=== PATIENT | female | born 1950 | race Caucasian/White ===

== ENCOUNTER 2016-06-17 10:45 | Outpatient (CLI) | payer MEDICARE, BC | END 2016-06-17 10:46 | disposition home or self-care (01) | DX: M19.072 Primary osteoarthritis, left ankle and foot (principal); M20.12 Hallux valgus (acquired), left foot ==

== ENCOUNTER 2016-08-13 12:10 | Outpatient (CLI) | payer MEDICARE, BC | END 2016-08-13 12:11 | disposition home or self-care (01) | LOC: LAB.R 12:10 | PROVIDERS: ATTEND Family Medicine | DX: N39.0 Urinary tract infection, site not specified (principal) | CPT/HCPCS: 87086 ==

== ENCOUNTER 2016-12-11 07:21 | Outpatient (CLI) | payer MEDICARE, BC ==
[2016-12-11 11:41] LABS: BASOPHILS # (AUTO) 0.1 10^3/uL (0.0-0.1); BASOPHILS % (AUTO) 0.8 %; EOSINOPHILS # (AUTO) 0.2 10^3/uL (0.0-0.7); EOSINOPHILS % (AUTO) 2.8 %; HCT - HEMATOCRIT 40.9 % (37.0-47.0); LYMPHOCYTES # (AUTO) 1.7 10^3/uL (1.5-3.5); LYMPHOCYTES % (AUTO) 26.4 %; MEAN CORPUSCULAR HEMOGLOBIN 30.4 pg (27.0-31.0); MEAN CORPUSCULAR HGB CONC 34.2 g/dL (32.0-36.0); MEAN CORPUSCULAR VOLUME 88.7 fL (81.0-99.0); MEAN PLATELET VOLUME 9.1 fL (7.9-10.8); MONOCYTES # (AUTO) 0.8 10^3/uL (0.0-1.0); MONOCYTES % (AUTO) 11.9 %; NEUTROPHILS # (AUTO) 3.7 10^3/uL (1.5-6.6); NEUTROPHILS % (AUTO) 58.1 %; RED BLOOD COUNT 4.61 10^6/uL (4.20-5.40); UNCORRECTED WHITE BLOOD COUNT 6.4 x10^3/uL; WHITE BLOOD COUNT 6.4 x10^3/uL (4.8-10.8)
[2016-12-11 11:56] LABS: ALBUMIN/GLOBULIN RATIO 1.4 (1.0-2.2); BILIRUBIN,TOTAL 0.7 mg/dL (0.2-1.0); BUN - BLOOD UREA NITROGEN 16 mg/dL (6-20); CALCIUM 9.2 mg/dL (8.5-10.3); CARBON DIOXIDE - CO2 25 mmol/L (21-32); CHLORIDE 104 mmol/L (101-111); CHOL/HDL RATIO 4.6 (<4.4); CHOLESTEROL 230 mg/dL; CREATININE 0.9 mg/dL (0.4-1.0); GFR - MDRD 62 (>89); GLUCOSE 108 mg/dL (70-100); HDL CHOLESTEROL 50 mg/dL; LDL/HDL RATIO 2.9 (<4.4); SODIUM 137 mmol/L (135-145); TRIGLYCERIDES 185 mg/dL; VLDL CHOLESTEROL 37 mg/dL
== END 2016-12-11 07:22 | disposition home or self-care (01) ==
LOC: LAB.F 07:21
PROVIDERS: ATTEND Family Medicine
DX: E78.5 Hyperlipidemia, unspecified (principal)
CPT/HCPCS: 36415; 80053; 80061; 85025

== ENCOUNTER 2017-06-14 07:41 | Outpatient (CLI) | payer MEDICARE, BC ==
[2017-06-14 10:54] LABS: ALBUMIN 4.2 g/dL (3.2-5.5); ALBUMIN/GLOBULIN RATIO 1.5 (1.0-2.2); BILIRUBIN,TOTAL 0.8 mg/dL (0.2-1.0); CREATININE 0.9 mg/dL (0.4-1.0)
== END 2017-06-14 07:42 | disposition home or self-care (01) ==
LOC: LAB 07:41 → LAB.F 07:42
PROVIDERS: ATTEND Family Medicine
DX: R73.01 Impaired fasting glucose (principal); E78.5 Hyperlipidemia, unspecified
CPT/HCPCS: 36415; 80053; 82465

== ENCOUNTER 2017-07-05 14:48 | Outpatient (CLI) | payer MEDICARE, BC ==
--- NOTE | 2017-07-06 12:46 | DEXA Report ---
DEXA SCAN: 07/05/2017 CLINICAL INDICATION: Postmenopausal. TECHNIQUE: Dual energy x-ray absorptiometry (DXA) was performed on a [employer] PF system. Regions measured are the AP spine, femoral neck, and, if needed, forearm. COMPARISON: None. In accordance with the International Society for Clinical Densitometry (ISCD) guidelines, data from previous exams may be reanalyzed using current recommendations and techniques. This is done to allow a more accurate basis for comparison with the current study. FINDINGS Data for the lumbar spine is as follows: REGION BMD (g/cm/cm) T-SCORE Z-SCORE L1 1.020 -0.9 0.0 L2 1.104 -0.8 0.1 L3 1.207 0.1 1.0 L4 1.216 0.1 1.1 L1-L4 1.140 -0.3 0.6 NOTE: All evaluable vertebrae are used for classification. Data for the hip is as follows: REGION BMD (g/cm/cm) T-SCORE Z-SCORE Neck 0.915 -0.9 0.3 TOTAL 0.959 -0.4 0.5 NOTE: The femoral neck or total proximal femur, whichever is lowest, is used for classification. IMPRESSION WHO CLASSIFICATION BASED ON THE INTERNATIONAL REFERENCE STANDARD IS NORMAL. FRACTURE RISK IS NOT INCREASED. RECOMMENDATION: Patients with diagnosis of osteoporosis or osteopenia should have regular bone mineral density assessment. For those eligible for Medicare, routine testing is allowed once every 2 years. Testing frequency can be increased for patients who have rapidly progressing disease or for those who are receiving medical therapy to restore bone mass. COMMENT World Health Organization (WHO) definitions for osteoporosis and osteopenia: NORMAL BMD: T-score at 1.0 or higher, fracture risk is low. OSTEOPENIA BMD: T-score between 1.0 and -2.5, fracture risk is increased. OSTEOPOROSIS BMD: T-score at 2.5 or lower, fracture risk high. National Osteoporosis Foundation recommends: 1. Obtain adequate dietary calcium (at least 1200 mg per day) and vitamin D (400 -800 international units per day). 2. Participate, as appropriate, in regular weightbearing and muscle- strengthening exercise. 3. Avoid tobacco use and reduce alcohol and caffeine intake. 4. For more detailed information see the website at www.NOF.org. TD: 07/05/2017 16:21 JENNIFER
== END 2017-07-05 14:49 | disposition home or self-care (01) ==
LOC: DI 14:48
PROVIDERS: ATTEND Family Medicine
DX: Z78.0 Asymptomatic menopausal state (principal)
CPT/HCPCS: 77080

== ENCOUNTER 2017-07-05 14:48 | Outpatient (CLI) | payer MEDICARE, BC ==
--- NOTE | 2017-07-06 14:54 | Mammography Report ---
DIGITAL SCREENING MAMMOGRAM: 07/05/2017 CLINICAL INDICATION: A 67-year-old nulliparous patient with history of bilateral benign biopsies for screening. COMPARISON: 08/2014, 10/2012, 01/2011, 12/2009. TECHNIQUE: Routine CC and MLO projections were obtained of the breasts. FINDINGS: The breasts again demonstrate scattered fibroglandular densities bilaterally. Post-biopsy changes are stable. Coarse and punctate, typically benign calcifications are present. No suspicious masses, clustered microcalcifications, or regions of architectural distortion are identified. IMPRESSION: BENIGN FINDINGS. RECOMMENDATION: Routine annual screening unless otherwise clinically indicated. BIRADS CATEGORY 2 - BENIGN FINDINGS. STANDARD QUALIFYING STATEMENTS: 1. This examination was reviewed with the aid of Computer-Aided Detection (CAD). 2. A negative or benign imaging report should not delay biopsy if clinically suspicious findings are present. Consider surgical consultation if warranted. More than 5% of cancers are not identified by imaging. 3. Dense breasts may obscure an underlying neoplasm. TD: 07/06/2017 14:54
== END 2017-07-05 14:49 | disposition home or self-care (01) ==
LOC: DI 14:48
PROVIDERS: ATTEND Family Medicine
DX: Z12.31 Encounter for screening mammogram for malignant neoplasm of breast (principal)
CPT/HCPCS: 77067

== ENCOUNTER 2018-01-03 08:22 | Outpatient (CLI) | payer MEDICARE, BC ==
[2018-01-03 10:54] LABS: ALBUMIN 4.1 g/dL (3.2-5.5); ALBUMIN/GLOBULIN RATIO 1.4 (1.0-2.2); ALKALINE PHOSPHATASE 76 IU/L (42-121); ALT ALANINE AMINOTRANSFERASE 25 IU/L (10-60); AST ASPARTATE AMINOTRANSFERASE 22 IU/L (10-42); BILIRUBIN,TOTAL 0.7 mg/dL (0.2-1.0); BUN - BLOOD UREA NITROGEN 16 mg/dL (6-20); CALCIUM 9.2 mg/dL (8.5-10.3); CARBON DIOXIDE - CO2 27 mmol/L (21-32); CHLORIDE 105 mmol/L (101-111); CHOL/HDL RATIO 4.3 (<4.4); CHOLESTEROL 213 mg/dL; CREATININE 0.8 mg/dL (0.4-1.0); GFR - MDRD 71 (>89); GLUCOSE 99 mg/dL (70-100); HDL CHOLESTEROL 50 mg/dL; LDL CHOLESTEROL,CALCULATED 129 mg/dL; LDL/HDL RATIO 2.6 (<4.4); SODIUM 139 mmol/L (135-145); TOTAL PROTEIN 7.1 g/dL (6.7-8.2); VLDL CHOLESTEROL 34 mg/dL
== END 2018-01-03 08:23 | disposition home or self-care (01) ==
LOC: LAB.F 08:22
PROVIDERS: ATTEND Family Medicine
DX: E78.5 Hyperlipidemia, unspecified (principal)
CPT/HCPCS: 36415; 80053; 80061; 83721

== ENCOUNTER 2018-05-12 15:56 | Outpatient (CLI) | payer MEDICARE, BC ==
[2018-05-12 16:22] LABS: CREATININE 0.8 mg/dL (0.4-1.0)
== END 2018-05-12 15:57 | disposition home or self-care (01) ==
LOC: LAB 15:56
PROVIDERS: ATTEND Orthopaedic Surgery
DX: M18.10 Unilateral primary osteoarthritis of first carpometacarpal joint, unspecified hand (principal)
CPT/HCPCS: 36415; 82565; 84520

== ENCOUNTER 2018-05-30 10:30 | Outpatient (CLI) | payer MEDICARE, BC ==
[~2018-05-30 10:30] MED LIST: GADOPENTETATE DIMEGLUMINE 5 ML VIAL IVP ONE; IOTHALAMATE MEGLUMINE 50 ML VIAL ONE
[2018-05-30] MEDS ORDERED: BUFFERED LIDOCAINE 10 ML SYRINGE ONE (10:45)
--- NOTE | 2018-05-30 12:11 | XRAY Report ---
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 CLINICAL HISTORY: Possible internal derangement of the radiocarpal joint. COMPARISON: None. TECHNIQUE: The risks, benefits, and alternatives of the procedure were discussed with the patient. All questions were answered. Written and verbal consent were obtained. The radiocarpal joint was marked under fluoroscopy and prepped and draped in a sterile manner. Local anesthesia was performed with 1% lidocaine. A 25-gauge needle was then inserted into the radiocarpal joint. 3 mL of a solution containing 25% 1% lidocaine, 25% iodinated contrast, and a 1:200 dilution of gadolinium contrast in sterile saline was then injected. The needle was removed without immediate complication. Other: None. Fluoroscopy Time: 2 seconds. Number of Images: 5. FINDINGS: Bones and joints: No fracture or subluxation. Injection: Fluoroscopic images demonstrate needle placement and contrast in the radiocarpal joint. No contrast extravasation outside of the radiocarpal joint. IMPRESSION: Successful fluoroscopically guided arthrographic injection of the wrist. RAD[facility]
[2018-05-30] MEDS ORDERED: BUFFERED LIDOCAINE 10 ML SYRINGE IU ONE (13:05)
[2018-05-30] MEDS ORDERED: GADOPENTETATE DIMEGLUMINE 5 ML VIAL IVP ONE (13:05)
[2018-05-30] MEDS ORDERED: IOTHALAMATE MEGLUMINE 50 ML VIAL IVP ONE (13:05)
--- NOTE | 2018-05-31 07:44 | MRI Report ---
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 CLINICAL HISTORY: Left wrist pain. First carpometacarpal joint osteoarthritis. COMPARISON: Left wrist arthrogram injection fluoroscopic images from 05/30/2018. TECHNIQUE: Multiplanar, multisequence T1-weighted and fluid-sensitive sequences of the wrist after an arthrographic injection of dilute gadolinium, dictated under a separate exam. Other: None. FINDINGS: Bones: No fractures or subluxations. No marrow edema. No bone lesions. Cartilage: Mild to moderate first carpometacarpal joint osteoarthritis. There is an approximately 2 x 3 mm full-thickness tear at the central to radial aspect of the triangular fibrocartilage articular disk. Ligaments: The scapholunate and lunotriquetral ligaments are intact. The visualized other intrinsic, extrinsic and collateral ligaments are unremarkable. Tendons: The extensor compartments I through and flexor tendons are unremarkable. Musculature: No edema or fatty atrophy. Other: The contents of the carpal tunnel, including the median nerve, are unremarkable. Guyons canal is unremarkable. No ganglion cysts. The subcutaneous tissues are unremarkable. IMPRESSION: 1. Full-thickness tear at the triangular fibrocartilage articular disk. 2. Mild to moderate first carpometacarpal joint osteoarthritis. 3. No evidence of tendon or ligament injury. [facility] MUSCULOSKELETAL RADIOLOGY SECTION
== END 2018-05-30 10:31 | disposition home or self-care (01) ==
LOC: DI 10:30
PROVIDERS: ATTEND Orthopaedic Surgery
DX: M18.12 Unilateral primary osteoarthritis of first carpometacarpal joint, left hand (principal); S63.592A Other specified sprain of left wrist, initial encounter
CPT/HCPCS: 25246; 73222; 77002; Q9961

== ENCOUNTER 2018-07-04 09:57 | Outpatient (CLI) | payer MEDICARE, BC ==
--- NOTE | 2018-07-04 19:48 | MRI Report ---
Reason: LUMBAR SPINE PAIN Procedure Date: 07/04/2018 Accession Number: [id number] / [id number] Procedure: MRI - Lumbar Spine W/O CPT Code: FULL RESULT: EXAM: MRI LUMBAR SPINE WITHOUT CONTRAST EXAM DATE: 07/04/2018 10:36 AM. CLINICAL HISTORY: LUMBAR SPINE PAIN. COMPARISON: MRI lumbar spine 11/27/2006. TECHNIQUE: Multiplanar, multisequence T1-weighted and fluid-sensitive sequences of the lumbar spine from T12 to S1 without contrast. Other: None. FINDINGS: Loss of vertebral body height along the superior endplate of T12 is stable. Vertebral body height is maintained throughout the lumbar spine. There is degenerative Schmorl's node formation at scattered levels. There has been development of diskogenic endplate irregularity at L4-L5. Grade 1 retrolisthesis of L4 relative to L5 is new. No abnormal signal is seen in the conus medullaris. T11-T12: No central canal stenosis is seen on the sagittal views. T12-L1: Posterior bulge of the annulus is new. L1-L2: A mild broad-based posterior disk protrusion has developed. No stenosis. There is a far lateral component on the right. L2-L3: A mild broad-based posterior disk protrusion has developed. No stenosis. L3-L4: A mild broad-based posterior disk protrusion has developed. No stenosis. L4-L5: A mild broad-based posterior disk protrusion has developed. Superior lateral recess narrowing is seen bilaterally greater on the right relative to the left. The disk protrusion extends into the foramen on the right and results in mild to moderate right foraminal stenosis. L5-S1: A mild broad-based posterior disk protrusion has developed. There is a foraminal component on the right which results in mild right foraminal stenosis. IMPRESSION: 1. Development of posterior disk protrusions from L1 through S1, greatest at L4-L5. 2. Development of right foraminal stenosis at L4-L5 and L5-S1. 3. Interval development of grade 1 retrolisthesis at L4-L5 and degenerative endplate irregularity at this level. 4. Vertebral body height loss at T12 is again seen consistent with a chronic compression deformity. No new compression deformity has developed in the interim. Comment: The following findings are so common in adults without low back pain that while we report their presence, they must be interpreted with caution and in the context of the clinical situation. (Reference Maulik et al, Spine 2001) Prevalence of findings in patients without low back pain: Disk degeneration (any evidence): 92% Disk desiccation/T2 signal loss: 83% Disk height loss: 56% Disk bulge: 64% Disk protrusion: 32% Annular tear/high intensity zone: 38% RADIA
== END 2018-07-04 09:58 | disposition home or self-care (01) ==
LOC: DI 09:57
PROVIDERS: ATTEND Physical Medicine & Rehabilitation Pain Medicine
DX: M51.26 Other intervertebral disc displacement, lumbar region (principal); M51.27 Other intervertebral disc displacement, lumbosacral region; M43.16 Spondylolisthesis, lumbar region
CPT/HCPCS: 72148

== ENCOUNTER 2018-11-29 09:03 | Outpatient (CLI) | payer MEDICARE, BC ==
--- NOTE | 2018-11-29 15:30 | MRI Report ---
Reason: RIGHT SHOULDER PAIN Procedure Date: 11/29/2018 Accession Number: [id number] / [id number] Procedure: MRI - Shoulder RT W/O CPT Code: FULL RESULT: EXAM: RIGHT SHOULDER MRI WITHOUT CONTRAST EXAM DATE: 11/29/2018 09:50 AM. CLINICAL HISTORY: Right shoulder pain. Limited range of motion. No surgery. COMPARISON: Radiographs 06/15/2016. TECHNIQUE: Multiplanar, multisequence T1-weighted and fluid-sensitive sequences of the shoulder without contrast. Other: None. FINDINGS: Acromioclavicular Region: The acromion is type II with mild anterior downsloping. Mild degenerative change at the acromioclavicular joint with small inferiorly directed osteophytes. The coracoacromial and coracoclavicular ligaments are intact. Minimal subacromial/subdeltoid bursal fluid. Glenohumeral Region: No subluxation. Small joint effusion with synovitis. Deep partial-thickness cartilage loss throughout the joint centrally. Mild edema in the joint capsule of the axillary recess with distortion at the humeral insertion posterior inferior glenohumeral ligament. Bone Marrow: No fracture or bone lesion. Mild reactive cyst and edema at the greater tuberosity. Labrum: Degenerative fraying throughout, most prominent at the posterior superior aspect where there is undersurface and free edge irregularity. Musculature/Rotator Cuff: Mild supraspinatus tendinopathy. Small shallow partial-thickness intrasubstance tear central to posterior insertion. Focal deep intrasubstance tear posterior insertion. Mild infraspinatus tendinopathy. Subtle shallow intrasubstance tear posterior insertion. Teres minor tendon unremarkable. Mild subscapularis tendinopathy with focal deep partial-thickness intrasubstance tear superior insertion. No edema or fatty atrophy. Biceps Tendon: Mild tendinopathy interarticular portion with possible intrasubstance tearing. Other: The subcutaneous tissues are unremarkable. IMPRESSION: 1. Mild supraspinatus tendinopathy with shallow intrasubstance tear central to posterior fibers. Focal deep intrasubstance tear posterior insertion. 2. Mild infraspinatus tendinopathy with subtle shallow intrasubstance tear posterior insertion. 3. Mild subscapularis tendinopathy with focal deep intrasubstance tear superior insertion. 4. Mild biceps tendinopathy with possible intrasubstance tearing. 5. Degenerative fraying throughout the labrum, most prominent posterior superior aspect. 6. Partial-thickness tear posterior inferior glenohumeral ligament. 7. Minimal subacromial subdeltoid bursitis. 8. Mild acromioclavicular degenerative change. 9. Anterior downsloping of the acromion and acromioclavicular osteophytes may contribute to symptoms of impingement. RADIA
== END 2018-11-29 09:04 | disposition home or self-care (01) ==
LOC: DI 09:03
PROVIDERS: ATTEND Orthopaedic Surgery
DX: M75.111 Incomplete rotator cuff tear or rupture of right shoulder, not specified as traumatic (principal); M67.911 Unspecified disorder of synovium and tendon, right shoulder; S43.491A Other sprain of right shoulder joint, initial encounter; M75.51 Bursitis of right shoulder; M19.011 Primary osteoarthritis, right shoulder; M25.711 Osteophyte, right shoulder

== ENCOUNTER 2019-01-09 08:00 | Outpatient (CLI) | payer MEDICARE, BC ==
[2019-01-09 19:16] LABS: RHEUMATOID FACTOR NEGATIVE (Negative)
== END 2019-01-09 08:01 | disposition home or self-care (01) ==
LOC: LAB.WCP 08:00
PROVIDERS: ATTEND Nurse Practitioner Family
DX: M25.50 Pain in unspecified joint (principal)
CPT/HCPCS: 36415; 86430

== ENCOUNTER 2019-04-25 09:00 | Outpatient (CLI) | payer MEDICARE, BC ==
[2019-04-25 17:16] LABS: BASOPHILS % (AUTO) 0.8 %; EOSINOPHILS # (AUTO) 0.1 10^3/uL (0.0-0.7); EOSINOPHILS % (AUTO) 2.5 %; HGB - HEMOGLOBIN 13.7 g/dL (12.0-16.0); LYMPHOCYTES # (AUTO) 1.6 10^3/uL (1.5-3.5); LYMPHOCYTES % (AUTO) 31.4 %; MEAN CORPUSCULAR HGB CONC 32.7 g/dL (32.0-36.0); MEAN CORPUSCULAR VOLUME 91.7 fL (81.0-99.0); MEAN PLATELET VOLUME 11.4 fL (7.9-10.8); MONOCYTES # (AUTO) 0.6 10^3/uL (0.0-1.0); MONOCYTES % (AUTO) 11.2 %; NEUTROPHILS # (AUTO) 2.8 10^3/uL (1.5-6.6); NEUTROPHILS % (AUTO) 53.9 %; PLT - PLATELET COUNT 218 10^3/uL (130-450); RED BLOOD COUNT 4.57 10^6/uL (4.20-5.40); RED CELL DISTRIBUTION WIDTH 13.5 % (12.0-15.0); WHITE BLOOD COUNT 5.2 x10^3/uL (4.8-10.8)
[2019-04-25 17:53] LABS: ALBUMIN/GLOBULIN RATIO 1.4 (1.0-2.2); ALKALINE PHOSPHATASE 78 IU/L (42-121); ALT ALANINE AMINOTRANSFERASE 38 IU/L (10-60); AST ASPARTATE AMINOTRANSFERASE 27 IU/L (10-42); BILIRUBIN,TOTAL 0.7 mg/dL (0.2-1.0); BUN - BLOOD UREA NITROGEN 12 mg/dL (6-20); CALCIUM 9.3 mg/dL (8.5-10.3); CARBON DIOXIDE - CO2 26 mmol/L (21-32); CHLORIDE 107 mmol/L (101-111); CHOLESTEROL 209 mg/dL; CREATININE 0.8 mg/dL (0.4-1.0); GFR - MDRD 71 (>89); GLUCOSE 107 mg/dL (70-100); HDL CHOLESTEROL 52 mg/dL; LDL CHOLESTEROL,CALCULATED 126 mg/dL; LDL/HDL RATIO 2.4 (<4.4); SODIUM 139 mmol/L (135-145); TOTAL PROTEIN 6.9 g/dL (6.7-8.2); VLDL CHOLESTEROL 31 mg/dL
== END 2019-04-25 09:01 | disposition home or self-care (01) ==
LOC: LAB.S 09:00
PROVIDERS: ATTEND Family Medicine
DX: E78.5 Hyperlipidemia, unspecified (principal)
CPT/HCPCS: 36415; 80053; 80061; 83721; 84443; 85025

== ENCOUNTER → 2019-09-21 | Outpatient (CLI) | payer MEDICARE, BC ==
--- NOTE | 2019-09-21 10:17 | XRAY Report ---
Reason: COUGH, GERD Procedure Date: 09/21/2019 Accession Number: [id number] / [id number] Procedure: WCP - Chest 2 View X-Ray CPT Code: 10235 Final Report FULL RESULT: PROCEDURE: Chest 2 View X-Ray INDICATIONS: Cough, GERD TECHNIQUE: 2 view(s) of the chest. COMPARISON: None. FINDINGS: Surgical changes and devices: None. Lungs and pleura: No pleural effusions or pneumothorax. Lungs are clear. Mediastinum: Mediastinal contours are normal. Heart size is normal. Bones and chest wall: No suspicious bony abnormalities. Soft tissues appear unremarkable. IMPRESSION: Normal chest radiographs. Reviewed by: Luis Antonio Webster MD on 09/21/2019 10:15 AM PDT Approved by: Luis Antonio Webster MD on 09/21/2019 10:15 AM PDT Station ID: [id number]
== END ==
LOC: DI.WCP 09:51
PROVIDERS: ATTEND Family Medicine
DX: K21.9 Gastro-esophageal reflux disease without esophagitis (principal); R05 Cough
CPT/HCPCS: 71046

== ENCOUNTER 2019-12-01 13:34 | Outpatient (CLI) | payer MEDICARE, BC ==
--- NOTE | 2019-12-04 13:39 | Mammography Report ---
BILATERAL DIGITAL SCREENING MAMMOGRAM 3D/2D: 12/01/2019 CLINICAL: Routine screening. Comparison is made to exams dated: 07/05/2017 mammogram, 08/07/2014 mammogram, 10/21/2012 mammogram, 01/2011 mammogram, and 01/03/2010 mammogram - [facility]. There are scattered fibr oglandular elements in both breasts. No significant masses, calcifications, or other findings are seen in either breast. There has been no significant interval change. IMPRESSION: NEGATIVE There is no mammographic evidence of malignancy. A 1 year screening mammogram is recommended. This exam was interpreted at Station ID: [id number]. NOTE: For mammograms, a report in lay terms will be sent to the patient. Approximately 15% of breast malignancies will not be visualized mammographically. In the management of a palpable breast mass, a negative mammogram must not discourage biopsy of a clinically suspicious lesion. Electronically Signed By: Hector Ramirez M.D. slc/penrad:12/01/2019 17:00:15 ACR BI-RADS Category 1: Negative 3341F PARENCHYMAL PATTERN: (A) - The breast(s) demonstrate(s) scattered fibroglandular densities. BI-RADS CATEGORY: (1) - 1 RECOMMENDATION: (ANNUAL) - Recommend routine annual screening mammography. [id number] 1 year screening LATERALITY: (B)
== END 2019-12-01 13:35 | disposition home or self-care (01) ==
LOC: DI 13:34
PROVIDERS: ATTEND Family Medicine
DX: Z12.31 Encounter for screening mammogram for malignant neoplasm of breast (principal)
CPT/HCPCS: 77063; 77067

== ENCOUNTER 2020-04-15 08:43 | Outpatient (CLI) | payer MEDICARE, BC ==
[2020-04-15 15:32] LABS: BASOPHILS % (AUTO) 0.6 %; EOSINOPHILS # (AUTO) 0.1 10^3/uL (0.0-0.7); EOSINOPHILS % (AUTO) 2.2 %; HGB - HEMOGLOBIN 13.5 g/dL (12.0-16.0); LYMPHOCYTES # (AUTO) 1.7 10^3/uL (1.5-3.5); LYMPHOCYTES % (AUTO) 34.9 %; MEAN CORPUSCULAR HEMOGLOBIN 30.8 pg (27.0-31.0); MEAN CORPUSCULAR HGB CONC 33.4 g/dL (32.0-36.0); MEAN PLATELET VOLUME 11.5 fL (7.9-10.8); MONOCYTES # (AUTO) 0.6 10^3/uL (0.0-1.0); MONOCYTES % (AUTO) 12.6 %; NEUTROPHILS # (AUTO) 2.5 10^3/uL (1.5-6.6); NEUTROPHILS % (AUTO) 49.5 %; PLT - PLATELET COUNT 229 10^3/uL (130-450); RED BLOOD COUNT 4.39 10^6/uL (4.20-5.40); RED CELL DISTRIBUTION WIDTH 13.6 % (12.0-15.0)
[2020-04-15 16:34] LABS: ALBUMIN 4.2 g/dL (3.2-5.5); ALBUMIN/GLOBULIN RATIO 1.8 (1.0-2.2); ALKALINE PHOSPHATASE 71 IU/L (42-121); ALT ALANINE AMINOTRANSFERASE 22 IU/L (10-60); AST ASPARTATE AMINOTRANSFERASE 21 IU/L (10-42); BILIRUBIN,TOTAL 0.6 mg/dL (0.2-1.0); BUN - BLOOD UREA NITROGEN 18 mg/dL (6-20); CALCIUM 10.1 mg/dL (8.5-10.3); CARBON DIOXIDE - CO2 24 mmol/L (21-32); CHLORIDE 105 mmol/L (101-111); CHOL/HDL RATIO 3.2 (<4.4); CHOLESTEROL 173 mg/dL; CREATININE 0.7 mg/dL (0.4-1.0); GLUCOSE 102 mg/dL (70-100); HDL CHOLESTEROL 54 mg/dL; LDL CHOLESTEROL,CALCULATED 104 mg/dL; LDL/HDL RATIO 1.9 (<4.4); TOTAL PROTEIN 6.6 g/dL (6.7-8.2); VLDL CHOLESTEROL 15 mg/dL
== END 2020-04-15 08:44 | disposition home or self-care (01) ==
LOC: LAB.S 08:43
PROVIDERS: ATTEND Internal Medicine
DX: E78.5 Hyperlipidemia, unspecified (principal)
CPT/HCPCS: 36415; 80053; 80061; 83721; 85025

== ENCOUNTER 2020-07-30 08:00 | Outpatient (CLI) | payer MEDICARE, BC | END 2020-07-30 23:59 | disposition home or self-care (01) | LOC: LAB.S 08:00 | PROVIDERS: ATTEND Physician Assistant | DX: R30.0 Dysuria (principal) | CPT/HCPCS: 87086 ==

== ENCOUNTER 2020-08-16 07:24 | Emergency (ER) | payer MEDICARE, BC ==
--- NOTE | 2020-08-16 07:44 | ED Physician Documentation ---
PD HPI CHEST PAIN - Stated complaint Stated Complaint: CHEST PX - Chief complaint Chief Complaint: Cardiac - History obtained from History obtained from: Patient - Additional information Additional information: 70-year-old woman with history of postmenopausal symptoms on estrogen and bone and joint problems but otherwise very healthy noted dull aching left anterior chest pain at about 3 AM. She was awake at the time. It is not severe. It does not radiate except for a couple of short episodes of pain in the left shoulder. No radiation to the jaw or back. She tried walking around to see if that would help. It did not help but nor did it make the pain worse. It is not associated with nausea, shortness of breath, fatigue. She did have some sweats this morning but that is fairly routine for her with her postmenopausal symptoms. No history of DVT or PE. No calf or ankle pain or swelling. No recent travel. Review of Systems Ten Systems: 10 systems reviewed and negative Constitutional: reports: Sweats (chronic). 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 HEENT: Cataracts - Present Medications Home Medications: Ambulatory Orders Medication Instructions Recorded Confirmed Albuterol Sulfate 0.63 mg IH DAILY 04/10/14 08/16/20 Atorvastatin [Lipitor] 1 tab DAILY 08/16/20 08/16/20 Pantoprazole [Protonix] 1 tab DAILY 08/16/20 08/16/20 - Allergies Allergies/Adverse Reactions: Allergies Allergy/AdvReac Type Severity Reaction Status Date / Time No Known Drug Allergies Allergy Verified 08/16/20 07:37 - Social History Does the pt smoke?: No Smoking Status: Never smoker Does the pt drink ETOH?: Yes Does the pt have substance abuse?: No - POLST Patient has POLST: No PD ED PE NORMAL - Vitals Vital signs reviewed: Yes - General General: Alert and oriented X 3, No acute distress - HEENT HEENT: PERRL, EOMI - Neck Neck: Supple, no meningeal sign, No bony TTP - Cardiac Cardiac: RRR, No murmur - Respiratory Respiratory: No respiratory distress, Clear bilaterally - Abdomen Abdomen: Soft, Non tender - Back Back: No CVA TTP, No spinal TTP - Derm Derm: Normal color, Warm and dry - Extremities Extremities: No edema, No calf tenderness / cord - Neuro Neuro: Alert and oriented X 3, Normal speech Results - Vitals Vitals: Vital Signs - 24 hr 08/16/20 08/16/20 08/16/20 07:26 07:30 09:39 Temperature 36 C L Heart Rate 51 L 57 L Respiratory 16 18 Rate Blood Pressure 143/84 H 123/74 Blood Pressure 133/79 H [Left] O2 Saturation 98 98 08/16/20 10:00 Temperature Heart Rate 57 L Respiratory 11 L Rate Blood Pressure 121/71 Blood Pressure [Left] O2 Saturation 98 Oxygen O2 Source Room air - EKG (time done) 0727 Rate: Rate (enter#) (51) Rhythm: NSR Bradner: Normal Intervals: Normal ND Ischemia: Non specific changes. No: ST elevation c/w ischemia, ST depression - Labs Labs: Laboratory Tests 08/16/20 08/16/20 08/16/20 07:56 07:56 07:56 WBC 5.8 RBC 4.64 Hgb 13.5 Hct 41.3 MCV 89.0 MCH 29.1 MCHC 32.7 RDW 13.4 Plt Count 224 MPV 10.1 Neut # (Auto) 3.2 Lymph # (Auto) 1.7 [place] # (Auto) 0.6 Eos # (Auto) 0.3 Baso # (Auto) 0.0 Absolute Nucleated RBC 0.00 Nucleated RBC % 0.0 D-Dimer 209.7 Sodium 138 Potassium 4.1 Chloride 104 Carbon Dioxide 25 Anion Gap 9.0 BUN 18 Creatinine 0.8 Estimated GFR (MDRD) 71 L Glucose 108 H Calcium 9.8 Total Bilirubin 0.7 AST 23 ALT 23 Alkaline Phosphatase 90 Troponin I High Sens Total Protein 7.3 Albumin 4.2 Globulin 3.1 Albumin/Globulin Ratio 1.4 Lipase 36 08/16/20 08/16/20 07:56 10:00 WBC RBC Hgb Hct MCV MCH MCHC RDW Plt Count MPV Neut # (Auto) Lymph # (Auto) [place] # (Auto) Eos # (Auto) Baso # (Auto) Absolute Nucleated RBC Nucleated RBC % D-Dimer Sodium Potassium Chloride Carbon Dioxide Anion Gap BUN Creatinine Estimated GFR (MDRD) Glucose Calcium Total Bilirubin AST ALT Alkaline Phosphatase Troponin I High Sens 3.7 2.5 Total Protein Albumin Globulin Albumin/Globulin Ratio Lipase - Rads (name of study) 1v chest xr Radiology: EMP read contemporaneously (NAD) PD MEDICAL DECISION MAKING - ED course ED course: 70-year-old woman with chest pain since this morning. Mild and declines pain medication. EKG is nonischemic. PE considered given that she is on estrogen supplementation but D-dimer negative. Second troponin done and both low and without change from the first. Departure - Departure Disposition: 01 Home, Self Care Clinical Impression: Atypical chest pain Condition: Good Record reviewed to determine appropriate education?: Yes Instructions: ED Chest Pain Atypical Unkn Cause Comments: You are seen today for chest pain, we did check an EKG and your troponins twice. All were negative. Also screen you for blood clots given the estrogen supplementation, D-dimer was negative for same. Follow-up with your physician. Return for new or worsening symptoms.
--- OUTSIDE RECORDS SUMMARY | 2020-08-16 08:02 | EXTERNAL MEDICAL SUMMARY RPT | Continuity of Care Document ---
:1950 Demographics Phone Unavailable Preferred Language Unknown Marital Status Unknown Adventism Affiliation Unknown Race Unknown Ethnic Group Unknown Author Organization [facility] Address [address] [phone] Phone Allergies Encounters Medications Problems Results
--- NOTE | 2020-08-16 08:07 | XRAY Report ---
PROCEDURE: Chest 1 View X-Ray INDICATIONS: Chest Pain TECHNIQUE: One view of the chest was acquired. COMPARISON: 09/21/2019 FINDINGS: Surgical changes and devices: None. Lungs and pleura: No pleural effusions or pneumothorax. Lungs are clear. Mediastinum: Mediastinal contours appear normal. Heart size is normal. Bones and chest wall: No suspicious bony lesions. Mild degenerative changes in the spine. Remote AC joint separation on the right. Overlying soft tissues appear unremarkable. IMPRESSION: No acute cardiopulmonary disease. Reviewed by: Keke Stone MD on 08/16/2020 8:06 AM PDT Approved by: Keke Stone MD on 08/16/2020 8:06 AM PDT Station ID: [id number]
[2020-08-16 08:08] LABS: BASOPHILS % (AUTO) 0.7 %; EOSINOPHILS # (AUTO) 0.3 10^3/uL (0.0-0.7); EOSINOPHILS % (AUTO) 4.3 %; HCT - HEMATOCRIT 41.3 % (37.0-47.0); HGB - HEMOGLOBIN 13.5 g/dL (12.0-16.0); LYMPHOCYTES # (AUTO) 1.7 10^3/uL (1.5-3.5); MEAN CORPUSCULAR HEMOGLOBIN 29.1 pg (27.0-31.0); MEAN CORPUSCULAR HGB CONC 32.7 g/dL (32.0-36.0); MEAN PLATELET VOLUME 10.1 fL (7.9-10.8); MONOCYTES # (AUTO) 0.6 10^3/uL (0.0-1.0); MONOCYTES % (AUTO) 11.1 %; NEUTROPHILS # (AUTO) 3.2 10^3/uL (1.5-6.6); NEUTROPHILS % (AUTO) 54.7 %; PLT - PLATELET COUNT 224 10^3/uL (130-450); RED BLOOD COUNT 4.64 10^6/uL (4.20-5.40); RED CELL DISTRIBUTION WIDTH 13.4 % (12.0-15.0); WHITE BLOOD COUNT 5.8 x10^3/uL (4.8-10.8)
[2020-08-16 08:46] LABS: ALBUMIN 4.2 g/dL (3.2-5.5); ALBUMIN/GLOBULIN RATIO 1.4 (1.0-2.2); BILIRUBIN,TOTAL 0.7 mg/dL (0.2-1.0); CALCIUM 9.8 mg/dL (8.5-10.3); CREATININE 0.8 mg/dL (0.4-1.0); POTASSIUM 4.1 mmol/L (3.5-5.0); TOTAL PROTEIN 7.3 g/dL (6.7-8.2)
[2020-08-16 10:40] VITALS: BP 126/76
== END 2020-08-16 10:47 | disposition home or self-care (01) ==
LOC: ED 07:24
DX: R07.89 Other chest pain (principal); N95.9 Unspecified menopausal and perimenopausal disorder; Z79.890 Hormone replacement therapy
CPT/HCPCS: 36415; 80053; 83690; 84484; 85025; 85379; 93005; 99284

== ENCOUNTER 2020-10-16 11:06 | Outpatient (CLI) | payer MEDICARE, BC ==
[2020-10-16 15:57] LABS: BASOPHILS % (AUTO) 0.6 %; EOSINOPHILS # (AUTO) 0.2 10^3/uL (0.0-0.7); EOSINOPHILS % (AUTO) 2.4 %; HCT - HEMATOCRIT 40.9 % (37.0-47.0); HGB - HEMOGLOBIN 13.3 g/dL (12.0-16.0); LYMPHOCYTES # (AUTO) 1.6 10^3/uL (1.5-3.5); LYMPHOCYTES % (AUTO) 26.4 %; MEAN CORPUSCULAR HEMOGLOBIN 30.5 pg (27.0-31.0); MEAN CORPUSCULAR HGB CONC 32.5 g/dL (32.0-36.0); MEAN CORPUSCULAR VOLUME 93.8 fL (81.0-99.0); MEAN PLATELET VOLUME 11.6 fL (7.9-10.8); MONOCYTES # (AUTO) 0.6 10^3/uL (0.0-1.0); MONOCYTES % (AUTO) 9.8 %; NEUTROPHILS # (AUTO) 3.8 10^3/uL (1.5-6.6); NEUTROPHILS % (AUTO) 60.5 %; PLT - PLATELET COUNT 226 10^3/uL (130-450); RED BLOOD COUNT 4.36 10^6/uL (4.20-5.40); RED CELL DISTRIBUTION WIDTH 13.6 % (12.0-15.0); WHITE BLOOD COUNT 6.2 x10^3/uL (4.8-10.8)
[2020-10-16 16:42] LABS: ALBUMIN 4.3 g/dL (3.2-5.5); ALBUMIN/GLOBULIN RATIO 1.5 (1.0-2.2); ALKALINE PHOSPHATASE 75 IU/L (42-121); ALT ALANINE AMINOTRANSFERASE 25 IU/L (10-60); AST ASPARTATE AMINOTRANSFERASE 19 IU/L (10-42); BILIRUBIN,TOTAL 0.8 mg/dL (0.2-1.0); BUN - BLOOD UREA NITROGEN 17 mg/dL (6-20); CALCIUM 9.7 mg/dL (8.5-10.3); CARBON DIOXIDE - CO2 27 mmol/L (21-32); CHLORIDE 106 mmol/L (101-111); CHOL/HDL RATIO 3.9 (<4.4); CHOLESTEROL 221 mg/dL; CREATININE 0.7 mg/dL (0.4-1.0); GFR - MDRD 82 (>89); GLUCOSE 97 mg/dL (70-100); HDL CHOLESTEROL 57 mg/dL; LDL CHOLESTEROL,CALCULATED 140 mg/dL; LDL/HDL RATIO 2.5 (<4.4); SODIUM 142 mmol/L (135-145); TOTAL PROTEIN 7.1 g/dL (6.7-8.2); TRIGLYCERIDES 119 mg/dL; VLDL CHOLESTEROL 24 mg/dL
[2020-10-16 16:59] LABS: CRP - C-REACTIVE PROTEIN < 1.0 mg/dL (0-1.0)
== END 2020-10-16 11:07 | disposition home or self-care (01) ==
LOC: LAB.S 11:06
PROVIDERS: ATTEND Internal Medicine
DX: I10 Essential (primary) hypertension (principal); R79.82 Elevated C-reactive protein (CRP); R30.0 Dysuria
CPT/HCPCS: 36415; 80053; 80061; 83721; 85025; 86140

== ENCOUNTER 2021-02-24 08:00 | Outpatient (CLI) | payer MEDICARE, BC | END 2021-02-24 23:59 | LOC: LAB.S 08:00 | PROVIDERS: ATTEND Emergency Medicine | DX: R19.7 Diarrhea, unspecified (principal) | CPT/HCPCS: 81599; 87045; 87177; 87209; 87329; 87427; 87449; 87493 ==

== ENCOUNTER 2021-05-10 08:00 | Outpatient (CLI) | payer MEDICARE, BC ==
--- NOTE | 2021-05-10 15:47 | XRAY Report ---
PROCEDURE: Knee 4 View LT INDICATIONS: LEFT KNEE PAIN TECHNIQUE: 4 views of the left knee(s) were acquired. COMPARISON: None. FINDINGS: Bones: No fractures or dislocations. No suspicious bony lesions. Mild degenerative change. Small o steophytes. Mild medial compartment joint space loss. Soft tissues: Minimal joint effusion. No suspicious soft tissue calcifications. 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 Reviewed by: Eulalio Zavaleta MD on 05/10/2021 2:46 PM AKST Approved by: Eulalio Zavaleta MD on 05/10/2021 2:46 PM AKST Station ID: [id number]
== END 2021-05-10 23:59 | disposition home or self-care (01) ==
LOC: DI.S 08:00
PROVIDERS: ATTEND Physician Assistant
DX: M17.12 Unilateral primary osteoarthritis, left knee (principal)

== ENCOUNTER 2021-05-27 10:48 | Outpatient (CLI) | payer MEDICARE, BC ==
--- NOTE | 2021-05-27 12:51 | MRI Report ---
PROCEDURE: Knee LT W/O INDICATIONS: LEFT KNEE PAIN TECHNIQUE: Noncontrast sagittal PD fast spin echo and T2 fast spin echo with fat saturation, sagittal 3-D gradie nt sequence with fat saturation; coronal T1 spin echo and PD fast spin echo with fat saturation, and axial PD fast spin echo with fat saturation through the knee. COMPARISON: None. Findings: Medial meniscus: Minimal surfacing signal in the posterior horn, which may reflect small tear. Lateral meniscus: No surface communication/tear. LIGAMENTS/TENDONS: Patellar tendon: Intact. Distal quadriceps tendon: Intact. Hoffa's fat pad: No evidence of fibrosis or mass. PCL: Intact. ACL: Intact. Lateral collateral ligament complex: No significant abnormality. Popliteus tendon: Intact. Medial collateral ligament: No significant abnormality.. MARROW: No significant abnormality. CARTILAGE: No significant chondromalacia or delamination injury. Muscles: No significant edema or atrophy. Joint effusion/De Leon's cyst: Trace joint effusion. No substantial De Leon's cyst. Subcutaneous soft tissues: Prepatellar soft tissue edema. IMPRESSION: 1.Minimal surfacing signal in the posterior horn, medial meniscus, which may reflect small tear. 2.Small suprapatellar joint effusion. 3.Prepatellar soft tissue edema. Reviewed by: Reinier Mcclain MD on 05/27/2021 12:50 PM PDT Approved by: Reinier Mcclain MD on 05/27/2021 12:50 PM PDT Station ID: [id number]
== END 2021-05-27 10:49 | disposition home or self-care (01) ==
LOC: DI 10:48
PROVIDERS: ATTEND Physician Assistant
DX: M25.462 Effusion, left knee (principal); R60.0 Localized edema; M25.562 Pain in left knee

== ENCOUNTER 2022-09-14 09:17 | Outpatient (CLI) | payer MEDICARE, BC ==
[2022-09-14 15:21] LABS: ALBUMIN/GLOBULIN RATIO 1.4 (1.0-2.2); ALKALINE PHOSPHATASE 77 IU/L (42-121); ALT ALANINE AMINOTRANSFERASE 24 IU/L (10-60); AST ASPARTATE AMINOTRANSFERASE 22 IU/L (10-42); BILIRUBIN,TOTAL 0.6 mg/dL (0.2-1.0); BUN - BLOOD UREA NITROGEN 15 mg/dL (6-20); CALCIUM 9.6 mg/dL (8.5-10.3); CARBON DIOXIDE - CO2 26 mmol/L (21-32); CHLORIDE 109 mmol/L (101-111); CHOL/HDL RATIO 3.7 (<4.4); CHOLESTEROL 213 mg/dL; CREATININE 0.8 mg/dL (0.4-1.0); GFR - MDRD 70 (>89); GLUCOSE 99 mg/dL (70-100); HDL CHOLESTEROL 57 mg/dL; LDL CHOLESTEROL,CALCULATED 127 mg/dL; LDL/HDL RATIO 2.2 (<4.4); POTASSIUM 4.1 mmol/L (3.5-5.0); SODIUM 140 mmol/L (135-145); TOTAL PROTEIN 6.9 g/dL (6.7-8.2); TRIGLYCERIDES 144 mg/dL; URIC ACID 6.3 mg/dL (2.6-7.2); VLDL CHOLESTEROL 29 mg/dL
[2022-09-14 15:23] LABS: BASOPHILS % (AUTO) 0.5 %; CRP - C-REACTIVE PROTEIN < 1.0 mg/dL (0-1.0); EOSINOPHILS # (AUTO) 0.1 10^3/uL (0.0-0.7); EOSINOPHILS % (AUTO) 2.5 %; HCT - HEMATOCRIT 42.5 % (37.0-47.0); HGB - HEMOGLOBIN 13.9 g/dL (12.0-16.0); LYMPHOCYTES # (AUTO) 1.6 10^3/uL (1.5-3.5); LYMPHOCYTES % (AUTO) 28.4 %; MEAN CORPUSCULAR HEMOGLOBIN 29.9 pg (27.0-31.0); MEAN CORPUSCULAR HGB CONC 32.7 g/dL (32.0-36.0); MEAN CORPUSCULAR VOLUME 91.4 fL (81.0-99.0); MEAN PLATELET VOLUME 11.4 fL (7.9-10.8); MONOCYTES # (AUTO) 0.6 10^3/uL (0.0-1.0); MONOCYTES % (AUTO) 11.1 %; NEUTROPHILS # (AUTO) 3.2 10^3/uL (1.5-6.6); NEUTROPHILS % (AUTO) 57.3 %; PLT - PLATELET COUNT 239 10^3/uL (130-450); RED BLOOD COUNT 4.65 10^6/uL (4.20-5.40); RED CELL DISTRIBUTION WIDTH 13.5 % (12.0-15.0); WHITE BLOOD COUNT 5.6 x10^3/uL (4.8-10.8)
[2022-09-14 15:26] LABS: THYROID STIMULATING HORMONE 2.76 uIU/mL (0.34-5.60)
[2022-09-14 16:11] LABS: RHEUMATOID FACTOR NEGATIVE (Negative)
[2022-09-14 21:10] LABS: ESTIMATED AVERAGE GLUCOSE 108 mg/dL (70-100); HEMOGLOBIN A1c% 5.4 % (4.27-6.07)
[2022-09-15 18:07] LABS: ANTI-DNA (DS) AB QN 1 IU/mL (0-9)
[2022-09-16 16:08] LABS: ANTINUCLEAR ANTIBODIES IFA Negative (.)
[2022-09-16 19:07] LABS: CYCLIC CITRULLINATED PEP IGG/A 4 units (0-19)
== END 2022-09-14 09:18 | disposition home or self-care (01) ==
LOC: LAB.S 09:17
PROVIDERS: ATTEND Internal Medicine
DX: N95.8 Other specified menopausal and perimenopausal disorders (principal); R63.5 Abnormal weight gain; R32 Unspecified urinary incontinence; M13.80 Other specified arthritis, unspecified site; L05.91 Pilonidal cyst without abscess; R79.82 Elevated C-reactive protein (CRP)
CPT/HCPCS: 36415; 80053; 80061; 83036; 83721; 84443; 84550; 85025; 85651; 86038; 86140; 86200; 86225; 86430

== ENCOUNTER 2022-10-05 08:55 | Outpatient (CLI) | payer MEDICARE, BC ==
--- NOTE | 2022-10-13 09:27 | Mammography Report ---
BILATERAL DIGITAL SCREENING MAMMOGRAM 3D/2D: 10/05/2022 CLINICAL: Routine screening. Family history of breast cancer. Comparison is made to exams dated: 09/21/2021 mammogram, 12/01/2019 mammogram, 07/05/2017 mammogram, 08/07/2014 mammogram, and 10/21/2012 mammogram - [facility]. There are scattered areas of fibroglandular density in both breasts (category b / 25%-50% glandular t issue). No significant masses, calcifications, or other findings are seen in either breast. There has been no significant interval change. IMPRESSION: NEGATIVE There is no mammographic evidence of malignancy. A 1 year screening mammogram is recommended. Based on the Tyrer Cuzick model (a risk assessment model) the patients lifetime risk is 5.4% and her 10 year risk is 4.9%. According to the ACR, ACS, and NCCN guidelines, an annual breast MRI exam beatris g with mammogram is recommended if the patients lifetime risk is 20% or greater. This exam was interpreted at Station ID: [id number]. NOTE: For mammograms, a report in lay terms will be sent to the patient. Approximately 15% of breast malignancies will not be visualized mammographically. In the management of a palpable breast mass, a negative mammogram must not discourage biopsy of a clinically suspicious lesion. Electronically Signed By: Zari De Leon M.D. esb/:10/05/2022 12:11:26 letter sent: No_Letter ACR BI-RADS Category 1: Negative 3341F PARENCHYMAL PATTERN: (A) - The breast(s) demonstrate(s) scattered fibroglandular densities. BI-RADS CATEGORY: (1) - 1 Mammogram [id number] 1 year screening LATERALITY: (B)
== END 2022-10-05 08:56 | disposition home or self-care (01) ==
LOC: DI.S 08:55
DX: Z12.31 Encounter for screening mammogram for malignant neoplasm of breast (principal); Z80.3 Family history of malignant neoplasm of breast

== ENCOUNTER 2023-01-05 13:40 | Outpatient (CLI) | payer MEDICARE, BC ==
--- NOTE | 2023-01-05 16:03 | XRAY Report ---
PROCEDURE: Shoulder 3 View LT INDICATIONS: BICEPS TENDINITIS OF LEFT SHOULDER TECHNIQUE: 3 views of the shoulder were acquired. COMPARISON: None. FINDINGS: Bones: No fractures or dislocations. No suspicious bony lesions. Visualized ribs appear intact. Soft tissues: No suspicious soft tissue calcifications. The visualized lungs are within normal limi ts. IMPRESSION: No acute bony abnormality. Reviewed by: Jean Abbott on 01/05/2023 4:02 PM PDT Approved by: Jean Abbott on 01/05/2023 4:02 PM PDT Station ID: [id number]
== END 2023-01-05 23:59 | disposition home or self-care (01) ==
LOC: DI.S 13:40
PROVIDERS: ATTEND Emergency Medicine
DX: M75.22 Bicipital tendinitis, left shoulder (principal)

== ENCOUNTER 2023-03-29 08:00 | Outpatient (CLI) | payer MEDICARE, BC ==
[2023-03-29 20:38] LABS: BILIRUBIN,URINE NEGATIVE (NEGATIVE); GLUCOSE, URINE (UA) NEGATIVE (NEGATIVE); KETONES,URINE (UA) TRACE mg/dL (NEGATIVE); LEUKOCYTE ESTERASE, URINE NEGATIVE (NEGATIVE); NITRITE,URINE NEGATIVE (NEGATIVE); OCCULT BLOOD,URINE NEGATIVE (NEGATIVE); PH,URINE 5.5 PH (5.0-7.5); PROTEIN,URINE NEGATIVE (NEGATIVE); UROBILINOGEN,URINE 1 (NORMAL) E.U./dL (NORMAL)
[2023-03-29 20:45] LABS: CLARITY,URINE HAZY (CLEAR)
[2023-03-29 21:17] LABS: BACTERIA,URINE None Seen /HPF (None Seen); RBC,URINE None Seen /HPF (0-5); SQUAMOUS EPITHELIAL CELL,UR NONE SEEN (<= Few); WBC,URINE 0-3 /HPF (0-5)
[2023-03-29 21:18] LABS: AMORPHOUS SEDIMENT,UR Marked /LPF
== END 2023-03-29 23:59 | disposition home or self-care (01) ==
LOC: LAB.S 08:00
PROVIDERS: ATTEND Emergency Medicine
DX: R30.0 Dysuria (principal)
CPT/HCPCS: 81001; 87086

== ENCOUNTER 2023-07-10 08:00 | Outpatient (CLI) | payer MEDICARE, BC ==
--- NOTE | 2023-07-11 06:59 | XRAY Report ---
PROCEDURE: Foot 1-2V LT INDICATIONS: LEFT FOOT PAIN TECHNIQUE: 3 views of the foot were acquired. COMPARISON: None. FINDINGS: Bones: No acute displaced fracture. No dislocation. There is hallux valgus alignment and moderate deg enerative changes of first MTP. Subchondral lucencies usually degenerative geodes versus sequelae of prior erosion. Calcaneal enthesopathy. Soft tissues: Possible soft tissue swelling is present. No suspicious calcifications. IMPRESSION: No acute radiographic abnormality. No dislocation. Possible soft tissue swelling. Degenerative changes most significant at the first MTP. Calcaneal enthesopathy. Hallux valgus alignme nt. If there is high concern for further derangement, consider MRI evaluation. Reviewed by: Demarco Morales MD on 07/11/2023 6:58 AM PDT Approved by: Demarco Morales MD on 07/11/2023 6:58 AM PDT Station ID: [id number]
== END 2023-07-10 23:59 | disposition home or self-care (01) ==
LOC: DI.S 08:00
PROVIDERS: ATTEND Emergency Medicine
DX: M19.072 Primary osteoarthritis, left ankle and foot (principal); M77.32 Calcaneal spur, left foot; M20.12 Hallux valgus (acquired), left foot

== ENCOUNTER 2023-08-13 10:15 | Outpatient (CLI) | payer MEDICARE, BC ==
--- NOTE | 2023-08-13 16:21 | MRI Report ---
PROCEDURE: Shoulder LT WO INDICATIONS: PAIN IN L SHOULDER TECHNIQUE: Noncontrast oblique coronal T2 fast spin echo with fat saturation, oblique sagittal T1 spin echo and T2 fast spin echo with fat saturation, axial T1 spin echo and T2 fast spin echo with fat saturation t hrough the shoulder. COMPARISON: Left shoulder radiograph dated 01/05/2023. FINDINGS: Image quality: Excellent. Rotator cuff: Low-grade bursal surface partial-thickness tear involving distal supraspinatus at its i nsertion on humeral head is seen extending to musculotendinous junction. Distal infraspinatus and sub scapularis tendinosis is seen. No full-thickness rotator cuff tendon rupture. No rotator cuff muscle atrophy on sagittal images. Bones and bursae: No bone marrow contusions or fractures. Kxdu-jt-[id number] acromioclavicular joint o steoarthritic changes are seen with joint space narrowing and downward osteophyte formation depressin g on musculotendinous junction of supraspinatus. Type II acromion is seen. No os acromiale. Moderate joint effusion and subacromial subdeltoid bursal fluid is seen, no loose bodies. Capsule and soft tissues: The glenohumeral ligaments are intact. Signal abnormality and fraying of po sterior superior labrum is seen concerning for posterior superior labral tear. The long head of the b iceps tendon demonstrates normal location and morphology. The rotator interval appears normal, witho ut fibrosis. The coracohumeral ligament is normal in thickness. IMPRESSION: 1. Low-grade bursal surface partial-thickness tear involving distal supraspinatus extending to muscul otendinous junction. Distal infraspinatus and subscapularis tendinosis. No full-thickness rotator cuf f tendon rupture. No rotator cuff muscle atrophy. 2. Thdu-si-[id number] acromioclavicular joint osteoarthritis. No fracture or dislocation. Moderate join t effusion and subacromial subdeltoid bursal fluid, no loose bodies. 3. Finding is suggestive of posterior superior labral tear. Reviewed by: Jono Calzada MD on 08/13/2023 4:20 PM PDT Approved by: Jono Calzada MD on 08/13/2023 4:20 PM PDT Station ID: [id number]
== END 2023-08-13 10:16 | disposition home or self-care (01) ==
LOC: DI 10:15
PROVIDERS: ATTEND Internal Medicine
DX: M75.112 Incomplete rotator cuff tear or rupture of left shoulder, not specified as traumatic (principal); M19.012 Primary osteoarthritis, left shoulder; M25.412 Effusion, left shoulder

== ENCOUNTER 2023-09-11 10:44 | Outpatient (CLI) | payer MEDICARE, BC ==
--- NOTE | 2023-09-12 21:44 | XRAY Report ---
PROCEDURE: Foot 3+V LT INDICATIONS: PT TECHNIQUE: 2 views of the foot were acquired. COMPARISON: Left foot radiograph on July 10, 2023. FINDINGS: Bones: No fractures or dislocations. Moderate hallux valgus alignment with first MTP angle of 31 de grees with associated joint space narrowing and juxta-articular osteophytosis. No suspicious bony les ions. Soft tissues: First MTP joint soft tissue bunion. No tibiotalar joint effusion. Achilles tendon natalie ears normal. Tiny Achilles calcaneal enthesophyte. IMPRESSION: 1.No acute bony abnormality. 2.Moderate hallux valgus alignment with first MTP joint degenerative changes. Reviewed by: Dwight Cooley MD on 09/12/2023 9:43 PM PDT Approved by: Dwight Cooley MD on 09/12/2023 9:43 PM PDT Station ID: [id number]
== END 2023-09-11 10:45 | disposition home or self-care (01) ==
LOC: DI 10:44
PROVIDERS: ATTEND Physician Assistant Surgical
DX: M20.12 Hallux valgus (acquired), left foot (principal); M19.072 Primary osteoarthritis, left ankle and foot

== ENCOUNTER 2023-09-27 09:08 | Outpatient (CLI) | payer MEDICARE, BC ==
[2023-09-27 14:55] LABS: BASOPHILS % (AUTO) 0.6 %; EOSINOPHILS # (AUTO) 0.1 10^3/uL (0.0-0.7); EOSINOPHILS % (AUTO) 1.8 %; HCT - HEMATOCRIT 42.8 % (37.0-47.0); HGB - HEMOGLOBIN 14.3 g/dL (12.0-16.0); LYMPHOCYTES # (AUTO) 1.6 10^3/uL (1.5-3.5); LYMPHOCYTES % (AUTO) 23.4 %; MEAN CORPUSCULAR HEMOGLOBIN 30.4 pg (27.0-31.0); MEAN CORPUSCULAR HGB CONC 33.4 g/dL (32.0-36.0); MEAN CORPUSCULAR VOLUME 91.1 fL (81.0-99.0); MEAN PLATELET VOLUME 11.5 fL (7.9-10.8); MONOCYTES # (AUTO) 0.7 10^3/uL (0.0-1.0); MONOCYTES % (AUTO) 9.8 %; NEUTROPHILS # (AUTO) 4.3 10^3/uL (1.5-6.6); NEUTROPHILS % (AUTO) 64.1 %; PLT - PLATELET COUNT 243 10^3/uL (130-450); RED CELL DISTRIBUTION WIDTH 13.1 % (12.0-15.0); WHITE BLOOD COUNT 6.7 x10^3/uL (4.8-10.8)
[2023-09-27 15:30] LABS: ALBUMIN 4.3 g/dL (3.2-5.5); ALBUMIN/GLOBULIN RATIO 1.7 (1.0-2.2); ALKALINE PHOSPHATASE 87 IU/L (42-121); ALT ALANINE AMINOTRANSFERASE 21 IU/L (10-60); AST ASPARTATE AMINOTRANSFERASE 18 IU/L (10-42); BILIRUBIN,TOTAL 0.5 mg/dL (0.2-1.0); BUN - BLOOD UREA NITROGEN 17 mg/dL (6-20); CALCIUM 10.2 mg/dL (8.5-10.3); CARBON DIOXIDE - CO2 29 mmol/L (21-32); CHLORIDE 106 mmol/L (101-111); CHOL/HDL RATIO 3.3 (<4.4); CHOLESTEROL 174 mg/dL; CREATININE 0.8 mg/dL (0.6-1.3); GFR - MDRD 70 (>89); GLUCOSE 99 mg/dL (74-104); HDL CHOLESTEROL 52 mg/dL; LDL CHOLESTEROL,CALCULATED 96 mg/dL; LDL/HDL RATIO 1.8 (<4.4); POTASSIUM 4.1 mmol/L (3.5-4.5); SODIUM 138 mmol/L (135-145); TOTAL PROTEIN 6.9 g/dL (6.4-8.9); TRIGLYCERIDES 128 mg/dL; VLDL CHOLESTEROL 26 mg/dL
== END 2023-09-27 09:09 | disposition home or self-care (01) ==
LOC: LAB.S 09:08
PROVIDERS: ATTEND Internal Medicine
DX: I10 Essential (primary) hypertension (principal); E78.5 Hyperlipidemia, unspecified; Z78.0 Asymptomatic menopausal state
CPT/HCPCS: 36415; 80053; 80061; 82670; 83721; 85025

== ENCOUNTER 2023-10-20 12:50 | Outpatient (CLI) | payer MEDICARE, BC ==
--- NOTE | 2023-10-21 08:01 | Mammography Report ---
BILATERAL DIGITAL SCREENING MAMMOGRAM 3D/2D: 10/20/2023 CLINICAL: Routine screening. Family history of breast cancer. Comparison is made to exams dated: 10/05/2022 mammogram, 09/21/2021 mammogram, and 12/01/2019 mammogram - [facility]. There are scattered areas of fibroglandular density in both breasts (category b / 25%-50% glandular t issue). There is a biopsy clip in the right breast. No significant masses, calcifications, or other findings are seen in either breast. There has been no significant interval change. IMPRESSION: NEGATIVE There is no mammographic evidence of malignancy. A 1 year screening mammogram is recommended. Based on the Tyrer Cuzick model (a risk assessment model) the patient's lifetime risk is 5.0% and her 10 year risk is 5.0%. According to the ACR, ACS, and NCCN guidelines, an annual breast MRI exam beatris g with mammogram is recommended if the patient's lifetime risk is 20% or greater. This exam was interpreted at Station ID: [id number]. NOTE: For mammograms, a report in lay terms will be sent to the patient. Approximately 15% of breast malignancies will not be visualized mammographically. In the management of a palpable breast mass, a negative mammogram must not discourage biopsy of a clinically suspicious lesion. Electronically Signed By: Keke egan/rae:10/20/2023 15:57:46 letter sent: No_Letter ACR BI-RADS Category 1: Negative 3341F PARENCHYMAL PATTERN: (A) - The breast(s) demonstrate(s) scattered fibroglandular densities. BI-RADS CATEGORY: (1) - 1 RECOMMENDATION: (ANNUAL) - Recommend routine annual screening mammography. [id number] 1 year screening LATERALITY: (B)
== END 2023-10-20 12:51 | disposition home or self-care (01) ==
LOC: DI.S 12:50
DX: Z12.31 Encounter for screening mammogram for malignant neoplasm of breast (principal); Z80.3 Family history of malignant neoplasm of breast; R92.323 Mammographic fibroglandular density, bilateral breasts

== ENCOUNTER 2023-10-28 09:45 | Outpatient (CLI) | payer MEDICARE, BC ==
--- NOTE | 2023-10-28 16:47 | MRI Report ---
PROCEDURE: Lower Leg (Tib-Fib) LT WO INDICATIONS: STRESS FX TECHNIQUE: Noncontrast coronal and sagittal T1 spin echo and STIR; axial T1 spin echo and T2 fast spin echo with fat saturation through the left lower leg. COMPARISON: Left ankle radiographs 01/14/2024 FINDINGS: Image quality: Excellent. Bones: The visualized bone marrow demonstrates normal signal on all sequences. The overlying cortex appears intact. No fractures lines or intra-osseous lesions. Soft tissues: The scanned muscles demonstrate normal overall bulk and internal signal. Mild nonspeci fic pretibial subcutaneous soft tissue edema. No soft tissue masses are present. Achilles tendon is mildly thickened compatible with tendinosis. IMPRESSION: 1.No acute trabecular bone injury or signs of acute stress reaction. No acute abnormality identified in the lower leg. 2.Mild Achilles tendinosis. Reviewed by: Liban Raphael MD on 10/28/2023 4:46 PM PDT Approved by: Liban Raphael MD on 10/28/2023 4:46 PM PDT Station ID: [id number]
== END 2023-10-28 09:46 | disposition home or self-care (01) ==
LOC: DI 09:45
PROVIDERS: ATTEND Physician Assistant Surgical
DX: M67.972 Unspecified disorder of synovium and tendon, left ankle and foot (principal)

== ENCOUNTER 2023-11-02 11:01 | Outpatient (CLI) | payer MEDICARE, BC ==
--- NOTE | 2023-11-02 15:36 | XRAY Report ---
PROCEDURE: Knee 4+V LT INDICATIONS: LEFT KNEE PAIN TECHNIQUE: 4 views of the left knee, including frontal view of both knees. COMPARISON: Left tibia/fibula MRI 10/28/2023 FINDINGS: Bones: No acute fractures or dislocations. No suspicious bony lesions. Mild joint space tearing i s seen at the medial femorotibial compartment. Tiny marginal osteophytes are present. Soft tissues: No left knee joint effusion. Chondrocalcinosis is noted in the right knee. IMPRESSION: 1.Mild left medial compartment osteoarthrosis. 2.Right knee chondrocalcinosis. Reviewed by: Liban Raphael MD on 11/02/2023 3:35 PM PDT Approved by: Liban Raphael MD on 11/02/2023 3:35 PM PDT Station ID: [id number]
== END 2023-11-02 11:02 | disposition home or self-care (01) ==
LOC: DI 11:01
PROVIDERS: ATTEND Physician Assistant Surgical
DX: M17.12 Unilateral primary osteoarthritis, left knee (principal); M11.261 Other chondrocalcinosis, right knee